=== PATIENT | male | born 1950 | race Caucasian/White ===

== ENCOUNTER 2017-12-19 12:59 | Inpatient (IN) | payer MEDICARE, MEDICAID, SELFPAY ==
[2017-12-19 13:36] VITALS: BMI 24.7
--- NOTE | 2017-12-19 13:48 | EKG12_ITS ---
Test Reason : OPWITH Blood Pressure : / mmHG Vent. Rate : 060 BPM Atrial Rate : 060 BPM P-R Int : 148 ms QRS Dur : 076 ms QT Int : 442 ms P-R-T Axes : 069 016 073 degrees QTc Int : 442 ms Normal sinus rhythm Septal infarct , age undetermined Abnormal ECG Confirmed by MAT TORRES ([id number]), online editor FITZ JACKSON ([id number]) on 12/31/2017 3:01:12 PM Referred By: Kelsy Lowe Confirmed By:MAT TORRES
--- NOTE | 2017-12-19 13:50 | HP.PCM_ITS ---
Problem List (1) CVA (cerebral vascular accident) Status: Resolved (2) HTN (hypertension) Status: Chronic (3) Dyslipidemia Status: Chronic History of Present Illness Date of Admission: 12/19/17 Chief Complaint: Symptom complex of opiate withdrawal The patient is a 67 year old M with past medical history of essential hypertension, dyslipidemia and old CVA who presents with symptoms of heroin withdrawal after he made an attempt to quit use of Heroin. . He wants to stop use of illicit drugs, he last used the drug about 5 AM today. He currently reports irritability, anxiety ,diaphoresis back pain restless legs, nausea and abdominal discomfort. Patient denies any chest pain, shortness of breath , palpitations or rapid heartbeat. Past Medical History Past Medical History (Chronic Problems): Chronic Problems HTN (hypertension) (Chronic) Dyslipidemia (Chronic) Allergies No Known Allergies Allergy (Verified 12/19/17 13:48) Home Medications: Ambulatory Orders Medication Instructions Recorded Albuterol Inhaler [Ventolin Hfa 1 - 2 puff INHALATION Q4H PRN PRN 12/19/17 (SP)] Atorvastatin Calcium 40 mg PO DAILY 12/19/17 Clopidogrel Bisulfate [Clopidogrel] 75 mg PO DAILY 12/19/17 Losartan/Hydrochlorothiazide 1 each PO DAILY 12/19/17 [Losartan-Hctz 50-12.5 mg Tab] Smoking Status: Current every day smoker Review of Systems Constitutional: Reports: Anorexia VTE Information - Inpt Only VTE Present on Admission: No VTE Mechan Device Prophylaxis: SCD's VTE Pharm Prophylaxis ordered?: No - Physical Exam General: Alert, Oriented x3 HEENT: Atraumatic Oral: Moist Mucosa Neck: Supple, No JVD Lungs: Clear to auscultation Cardiovascular: Regular rate, Normal S1, Normal S2 Weight: 78.1 kg Body Mass Index (BMI) 24.7 Assessment/Plan All Active Problems CVA (cerebral vascular accident) (Resolved) 1. Acute opiate withdrawal; he will be started on the [facility] opiate withdrawal protocol for medical stabilization. We will continue to monitor the patient closely. 2. Drug use disorder; the patient is recommended to follow up for outpatient drug rehabilitation. 3. Old CVA; we will continue his antiplatelet therapy for secondary stroke prevention. 4. Nicotine dependency; he has been offered nicotine replacement therapy. 5. DVT prophylaxis with early ambulation and SCDs. Code Visit Inpatient E&M: 92470 Init Hosp L3
[2017-12-19 13:53] VITALS: BP 125/83; PULSE 77; RESP 18; TEMP 36.8; O2SAT 92
[2017-12-19 14:04] VITALS: BP 125/83; PULSE 77; RESP 18; TEMP 36.8
[2017-12-19 14:31] LABS: International Normalized Ratio 1.1; Prothrombin Time (Protime)PT. 13.8 SECONDS (11.7-14.9)
[2017-12-19 14:36] LABS: Amylase 39 U/L (25-115); Lipase 100 U/L (73-393)
[2017-12-19] MEDS: cloNIDine HCl 0.1 MG Tablet PO ×3 (14:49→19:53)
[2017-12-19] MEDS: Buprenorphine HCl 2 MG TAB.SUBL SL ×2 (14:49→21:44)
[2017-12-19] MEDS: Dicyclomine 10 MG Capsule 20 MG PO (14:50)
[2017-12-19] MEDS: hydrOXYzine PAM 25 MG Capsule 50 MG PO (14:50)
[2017-12-19 14:57] LABS: Alcohol, Blood (Medical)-Serum < 3.0 mg/dL
[2017-12-19] MEDS: Ondansetron ODT 4 MG Tablet PO (15:48)
[2017-12-19 16:04] LABS: Amphetamine Urine VISTA NEGATIVE (<1000 ng/mL); Barbiturate Urine VISTA NEGATIVE (< 200 ng/mL); Benzodiazepine Urine VISTA NEGATIVE (< 200 ng/mL); Cocaine Urine VISTA NEGATIVE (< 300 ng/mL); Ecstacy Urine VISTA NEGATIVE (< 500 ng/mL); Methadone Urine VISTA NEGATIVE (< 300 ng/mL); PCP Urine VISTA NEGATIVE (< 25 ng/mL); THC Urine VISTA NEGATIVE (< 50 ng/mL); Vista UDS pH Range 7
[2017-12-19] MEDS: Methocarbamol 750 MG Tablet PO (17:45)
[2017-12-19] MEDS: Pramipexole Di-HCl 0.25 MG Tablet PO (17:45)
[2017-12-19 18:00] VITALS: BP 128/77; PULSE 70; RESP 18; TEMP 36.8; O2SAT 96
[2017-12-19] MEDS: traZODone 50 MG Tablet PO (19:52)
[2017-12-19] MEDS: QUEtiapine 25 MG Tablet PO (19:53)
[2017-12-19] MEDS: Ibuprofen 600 MG Tablet PO (21:47)
[2017-12-19 21:58] VITALS: BP 117/70; PULSE 72; RESP 18; TEMP 36.7; O2SAT 94
[2017-12-20] VITALS (9 sets, daily range): BP systolic 113–138; BP diastolic 74–98; PULSE 62–68; RESP 16–20; TEMP 36.5–37; O2SAT 93–97
[2017-12-20] MEDS: cloNIDine HCl 0.1 MG Tablet PO ×6 (00:11→17:27)
[2017-12-20] MEDS: Methocarbamol 750 MG Tablet PO ×3 (00:11→22:21)
[2017-12-20] MEDS: hydrOXYzine PAM 25 MG Capsule 50 MG PO ×3 (00:11→17:28)
[2017-12-20] MEDS: Albuterol 2.5 MG/3 ML VIAL.NEB. INHALATION ×2 (01:23→22:26)
[2017-12-20] MEDS: Ibuprofen 600 MG Tablet PO ×2 (05:44→17:27)
[2017-12-20] MEDS: Buprenorphine HCl 2 MG TAB.SUBL SL ×3 (05:44→22:21)
[2017-12-20] MEDS: Pramipexole Di-HCl 0.25 MG Tablet PO ×2 (05:45→17:19)
[2017-12-20] MEDS: Losartan Potassium 50 MG Tablet PO (07:42)
[2017-12-20] MEDS: HYDROCHLOROTHIAZIDE 12.5 MG CAPSULE PO (07:42)
[2017-12-20] MEDS: Clopidogrel Bisulfate 75 MG Tablet PO (07:42)
--- NOTE | 2017-12-20 09:01 | PN_ITS ---
Subjective: Patient was seen and examined. Complains of poor sleep last night. Complains of cramps in his lower extremities. Denies any fever or chills or nausea or vomiting. Vitals/I&O's: Vital Signs Temp Pulse Resp BP Pulse Ox 98.1 F 65 16 126/92 H 94 12/20/17 07:47 12/20/17 07:47 12/20/17 07:47 12/20/17 07:47 12/20/17 07:47 Oxygen Delivery Method Room Air Weight: 78.1 kg Body Mass Index (BMI) 24.7 Intake and Output for Last 24 Hours 12/18/17 12/19/17 12/20/17 23:59 23:59 23:59 Intake Total 1500 / 1500 800 / 800 Balance 1500 / 1500 800 / 800 General: Alert, Oriented x3, Cooperative, No apparent distress HEENT: Atraumatic, PERRLA, EOMI, Normocephalic Oral: Moist Mucosa Neck: Supple Lungs: Clear to auscultation, Normal air movement Cardiovascular: Regular rate, Regular Rhythm, Normal S1, Normal S2, No murmurs Abdomen: Bowel Sounds Present, Soft, Non Tender, Non-Distended, No Hepato- splenomegaly Extremities: No edema Skin: - - Bruises on dorsum of hands and upper extremities. Musculoskeletal: No Tenderness to Palpation of Joints or Extremities Neurological: Cranial nerves II-XII grossly intact, Neuro grossly intact Psych/Mental Status: Normal Affect, Appropriate Laboratory Results 12/19/17 14:10: PT 13.8, INR 1.1 12/19/17 14:10: Amylase 39, Lipase 100 12/19/17 14:10: Ethyl Alcohol < 3.0 12/19/17 14:50: Urine Opiates Screen POSITIVE H, Urine Methadone Screen NEGATIVE , Ur Barbiturates Screen NEGATIVE, Ur Phencyclidine Scrn NEGATIVE, Ur Amphetamines Screen NEGATIVE, U Methamphetamin-MDMA NEGATIVE, U Benzodiazepines Scrn NEGATIVE, Urine Cocaine Screen NEGATIVE, U Cannabinoids Screen NEGATIVE, Ur Drug Screen Comment Current Medications Acetaminophen (Tylenol) 500 mg PO Q4H PRN PRN PRN Reason: Temp > 100.4 F Albuterol Sulfate (Ventolin Aerosols) 2.5 mg INHALATION Q4H PRN PRN Reason: SOB &/OR WHEEZING Last Admin: 12/20/17 01:23 Dose: 2.5 mg Atorvastatin Calcium (Lipitor) 40 mg PO QHS [facility] Bisacodyl (Dulcolax) 10 mg RECTAL DAILY PRN PRN Reason: Constipation Buprenorphine HCl (Buprenorphine Hcl) 4 mg SL Q8H LEONARD PRN Reason: Taper Stop: 12/22/17 18:29 Last Admin: 12/20/17 05:44 Dose: 4 mg Clonidine (Catapres) 0.1 mg PO Q2H PRN PRN PRN Reason: Hot/Cold Sweats or Anxiety Last Admin: 12/20/17 07:39 Dose: 0.1 mg Clopidogrel Bisulfate (Plavix) 75 mg PO DAILY [facility] Last Admin: 12/20/17 07:42 Dose: 75 mg Dicyclomine HCl (Bentyl) 20 mg PO Q6H PRN PRN PRN Reason: Abdomnial Discomfort Last Admin: 12/19/17 14:50 Dose: 20 mg Hydrochlorothiazide (Hydrochlorothiazide) 12.5 mg PO DAILY [facility] Last Admin: 12/20/17 07:42 Dose: 12.5 mg Hydroxyzine HCl (Vistaril Vial) 50 mg IM Q6H PRN PRN PRN Reason: Breakthrough Anxiety Hydroxyzine Pamoate (Vistaril Pamoate Capsule) 50 mg PO Q6H PRN PRN PRN Reason: Mild Anxiety (score 1/3) Last Admin: 12/20/17 06:42 Dose: 50 mg Ibuprofen (Motrin) 600 mg PO Q8H PRN PRN PRN Reason: Mild-Moderate Pain (1-5/10) Last Admin: 12/20/17 05:44 Dose: 600 mg Loperamide HCl (Imodium) 2 - 4 mg PO UD PRN PRN Reason: LOOSE STOOLS Losartan Potassium (Cozaar) 50 mg PO DAILY [facility] Last Admin: 12/20/17 07:42 Dose: 50 mg Methocarbamol (Methocarbamol) 750 mg PO Q6H PRN PRN PRN Reason: Muscle Aches Last Admin: 12/20/17 07:39 Dose: 750 mg Nicotine (Nicoderm Cq (Pbkc)) 21 mg TRANSDERM. DAILY [facility] Last Admin: 12/20/17 07:40 Dose: 21 mg Ondansetron HCl (Zofran Odt) 4 mg PO Q6H PRN PRN PRN Reason: NAUSEA Last Admin: 12/19/17 15:48 Dose: 4 mg Pramipexole Dihydrochloride (Mirapex) 0.25 mg PO Q12H PRN PRN PRN Reason: Restless Legs Last Admin: 12/20/17 05:45 Dose: 0.25 mg Quetiapine Fumarate (Seroquel) 25 mg PO Q6H PRN PRN PRN Reason: Moderate Anxiety (score 2/3) Last Admin: 12/19/17 19:53 Dose: 25 mg Senna (Senokot) 1 tablet PO QHS PRN PRN Reason: Constipation Sodium Chloride () 5 - 30 ml IV UD PRN PRN Reason: SALINE FLUSH Trazodone HCl (Desyrel) 50 mg PO QHS [facility] Last Admin: 12/19/17 19:52 Dose: 50 mg Medical Necessity - Tobacco Use Smoking Status: Current every day smoker Assessment/Plan All Active Problems CVA (cerebral vascular accident) (Resolved) 1. Acute opiate withdrawal, stable, being managed on the buprenorphine protocol , continue per the [facility] program 2. Polysubstance use -patient advised to quit, will follow up for outpatient drug rehabilitation. 3. H/o CVA, with no residual deficits, on Plavix, statins, continue for secondary stroke prevention 4. Hypertension controlled, continue on hydrochlorothiazide, losartan, continue to monitor vitals 5. Nicotine use disorder, on nicotine patch 6. DVT prophylaxis with early ambulation and SCDs. Code Visit Inpatient E&M: 49107 Subs Hosp L2
[2017-12-20] MEDS: QUEtiapine 25 MG Tablet PO ×2 (09:29→17:27)
--- NOTE | 2017-12-20 10:18 | PCA ---
pt would like to not be disturbed
--- NOTE | 2017-12-20 11:03 | PCA ---
per nichol/rn pt asked to not be disturbed
[2017-12-20] MEDS: Senna Tablet 1 TABLET PO (12:34)
[2017-12-20] MEDS: Bisacodyl 10 MG Suppository RECTAL (12:36)
--- NOTE | 2017-12-20 13:17 | PCA ---
per nichol/rn pt doesn't want to be disturbed except for meds
--- NOTE | 2017-12-20 15:12 | CHAPLAIN ---
Type of Pastoral Visit ___ Initial Visit ___ Follow-up Visit ___ On-call Visit ___ General Patient Visit ___ Spiritual Assessment ___ Family Conference ___ Bereavement ___ Rapid Response ___ Code Blue _x__ Other (describe below) Pastoral Care Referral From ___ Patient ___ Family ___ Nurse ___ Physician ___ Oil Tanker Captain ___ Telephone Engineer ___ Other (describe below) Sacrament/Intervention ___ Active listening ___ Anointing ___ Samaritan ___ Bereavement ___ Communion ___ Marva exploration ___ ___ Life review ___ Prayer ___ Reconciliation ___ Sacrament of Sick ___ Supportive presence ___ Wedding ___ Other (describe below) Pastoral Comments RN asked this patient if he would like this pipe coverer helper to come for support; pt declined offer and said It won't do any good
--- NOTE | 2017-12-20 15:18 | PCA ---
per nichol/rn pt would not like to be disturbed except for meds
--- NOTE | 2017-12-20 17:30 | PCA ---
not to disturb pt per dr's orders unless pt calls
[2017-12-20] MEDS: Atorvastatin Calcium 40 MG Tablet PO (22:21)
[2017-12-20] MEDS: Ondansetron ODT 4 MG Tablet PO (22:21)
[2017-12-20] MEDS: traZODone 50 MG Tablet PO (22:21)
[2017-12-20] MEDS: MELATONIN 3 MG TABLET PO (22:29)
[2017-12-21] VITALS (11 sets, daily range): BP systolic 93–149; BP diastolic 64–96; PULSE 54–78; RESP 16–20; TEMP 36.6–37.3; O2SAT 88–95
[2017-12-21 06:08] LABS: Absolute Lymphocyte Count 2.03 X10^3/ul (0.83-4.51); Absolute Neutrophil Count 4.4 X10^3/uL (2.0-7.7); Basophil# 0.03 X10^3/uL; Basophil% 0.4 % (0-1); Eosinophils% 2.7 % (0-5); Hematocrit 46.4 % (40-54); Hemoglobin 15.8 g/dl (13.0-16.5); Lymphocyte # 2.03 X10^3/ul (4.0); Lymphocyte % 27.6 % (19-41); Mean Corp Hgb Conc 34.1 g/gl (32-36); Mean Corpuscular Hgb 31.2 pg (27.0-32.0); Mean Corpuscular Volume 91.7 fL (80-94); Monocyte# 0.66 X10^3/uL; Neutrophil # 4.43 X10^3/uL (2.7-7.7); Neutrophil % 60.2 % (47-70); Platelet Count 135 K/mm3 (150-450); RBC Distribution Width CV 13.8 % (11.6-14.6); RBC Distribution Width SD 46.2 fl (35.1-43.9); Red Blood Count 5.06 M/mm3 (4.6-6.2); White Blood Count 7.4 K/mm3 (4.4-11.0)
[2017-12-21 06:10] LABS: Differential Indicated SCAN CRITERIA MET; POSITIVE COUNT NO; POSITIVE DIFFERENTIAL NO; POSITIVE MORPHOLOGY YES
[2017-12-21 06:22] LABS: Differential Comment SCANNED
[2017-12-21 06:30] LABS: Anion Gap 6 (5-15); BUN 11 mg/dL (7-18); BUN/Creat Ratio 13.8 RATIO (10-20); Calcium,Total 8.8 mg/dL (8.5-10.1); Chloride 109 mmol/L (98-107); EST Glomerular Filtration Rate 103 mL/min (>60); Est Glom Filt Rate - Afr Amer 124 mL/min (>60); Estimated Creatinine Clearance 92.52 ml/min; Glucose 104 mg/dL (74-106); Potassium 3.6 mmol/L (3.5-5.1); Sodium Level 143 mmol/L (136-145)
[2017-12-21] MEDS: Buprenorphine HCl 2 MG TAB.SUBL SL ×2 (06:45→18:13)
[2017-12-21] MEDS: Ibuprofen 600 MG Tablet PO ×2 (06:46→18:20)
[2017-12-21] MEDS: Pramipexole Di-HCl 0.25 MG Tablet PO (06:46)
[2017-12-21] MEDS: Sodium Chloride 0.65% 1 SPRAY SPRAY.BTL NASAL (06:47)
[2017-12-21] MEDS: hydrOXYzine PAM 25 MG Capsule 50 MG PO ×3 (06:47→23:21)
[2017-12-21] MEDS: Albuterol 2.5 MG/3 ML VIAL.NEB. INHALATION ×2 (10:06→23:38)
[2017-12-21] MEDS: cloNIDine HCl 0.1 MG Tablet PO ×3 (10:07→23:21)
[2017-12-21] MEDS: Senna Tablet 1 TABLET PO ×2 (10:07→23:21)
[2017-12-21] MEDS: HYDROCHLOROTHIAZIDE 12.5 MG CAPSULE PO (10:07)
[2017-12-21] MEDS: Methocarbamol 750 MG Tablet PO ×2 (10:07→23:36)
[2017-12-21] MEDS: Losartan Potassium 50 MG Tablet PO (10:07)
[2017-12-21] MEDS: Clopidogrel Bisulfate 75 MG Tablet PO (10:07)
--- NOTE | 2017-12-21 11:49 | PCM.PN.HOSP ---
Subjective: Patient was seen and examined. Objective: Physical exam: General: Alert, Oriented x3, Cooperative, No apparent distress HEENT: Atraumatic, PERRLA, EOMI, Normocephalic Oral: Moist Mucosa Neck: Supple Lungs: Clear to auscultation, Normal air movement Cardiovascular: Regular rate, Regular Rhythm, Normal S1, Normal S2, No murmurs Abdomen: Bowel Sounds Present, Soft, Non Tender, Non-Distended, No Hepato-splenomegaly Extremities: No edema Skin: - - Bruises on dorsum of hands and upper extremities. Musculoskeletal: No Tenderness to Palpation of Joints or Extremities Neurological: Cranial nerves II-XII grossly intact, Neuro grossly intact Psych/Mental Status: Normal Affect, Appropriate Vitals/I&O's: Vital Signs Temp Pulse Resp BP Pulse Ox 98.4 F 77 18 106/83 H 91 12/21/17 09:30 12/21/17 10:06 12/21/17 10:06 12/21/17 09:30 12/21/17 10:06 Oxygen Flow Rate (L/min) 2 Oxygen Delivery Method Room Air Weight: 78.1 kg Body Mass Index (BMI) 24.7 Intake and Output for Last 24 Hours 12/19/17 12/20/17 12/21/17 23:59 23:59 23:59 Intake Total 1500 / 1500 1949 / 1949 440 / 440 Balance 1500 / 1500 1949 / 1949 440 / 440 Laboratory Results 12/21/17 05:20: WBC 7.4, RBC 5.06, Hgb 15.8, Hct 46.4, MCV 91.7, MCH 31.2, MCHC 34.1, RDW 13.8, RDW Differential 46.2 H, Plt Count 135 L, MPV 11.0, Immature Gran % (Auto) 0.100, Neut % (Auto) 60.2, Lymph % (Auto) 27.6, Reeves % (Auto) 9.0, Eos % (Auto) 2.7, Baso % (Auto) 0.4, Absolute Neuts (auto) 4.4, Absolute Lymphs (auto) 2.03, Total Counted Not Reportable, Differential Comment SCANNED 12/21/17 06:05: Sodium 143, Potassium 3.6, Chloride 109 H, Carbon Dioxide 28.0, Anion Gap 6, BUN 11, Creatinine 0.80, Estim Creat Clear Calc 92.52, Est GFR (MDRD) Af Amer 124, Est GFR (MDRD) Non-Af 103, BUN/Creatinine Ratio 13.8, Glucose 104, Calcium 8.8 Current Medications Acetaminophen (Tylenol) 500 mg PO Q4H PRN PRN PRN Reason: Temp > 100.4 F Albuterol Sulfate (Ventolin Aerosols) 2.5 mg INHALATION Q4H PRN PRN Reason: SOB &/OR WHEEZING Last Admin: 12/21/17 10:06 Dose: 2.5 mg Atorvastatin Calcium (Lipitor) 40 mg PO QHS [facility] Last Admin: 12/20/17 22:21 Dose: 40 mg Bisacodyl (Dulcolax) 10 mg RECTAL DAILY PRN PRN Reason: Constipation Last Admin: 12/20/17 12:36 Dose: 10 mg Buprenorphine HCl (Buprenorphine Hcl) 2 mg SL Q12H LEONARD PRN Reason: Taper Stop: 12/22/17 18:29 Last Admin: 12/21/17 06:45 Dose: 2 mg Clonidine (Catapres) 0.1 mg PO Q2H PRN PRN PRN Reason: Hot/Cold Sweats or Anxiety Last Admin: 12/21/17 10:07 Dose: 0.1 mg Clopidogrel Bisulfate (Plavix) 75 mg PO DAILY [facility] Last Admin: 12/21/17 10:07 Dose: 75 mg Dicyclomine HCl (Bentyl) 20 mg PO Q6H PRN PRN PRN Reason: Abdomnial Discomfort Last Admin: 12/19/17 14:50 Dose: 20 mg Hydrochlorothiazide (Hydrochlorothiazide) 12.5 mg PO DAILY [facility] Last Admin: 12/21/17 10:07 Dose: 12.5 mg Hydroxyzine HCl (Vistaril Vial) 50 mg IM Q6H PRN PRN PRN Reason: Breakthrough Anxiety Hydroxyzine Pamoate (Vistaril Pamoate Capsule) 50 mg PO Q6H PRN PRN PRN Reason: Mild Anxiety (score 1/3) Last Admin: 12/21/17 06:47 Dose: 50 mg Ibuprofen (Motrin) 600 mg PO Q8H PRN PRN PRN Reason: Mild-Moderate Pain (1-5/10) Last Admin: 12/21/17 06:46 Dose: 600 mg Loperamide HCl (Imodium) 2 - 4 mg PO UD PRN PRN Reason: LOOSE STOOLS Losartan Potassium (Cozaar) 50 mg PO DAILY [facility] Last Admin: 12/21/17 10:07 Dose: 50 mg Melatonin (Melatonin) 3 mg PO QHS [facility] Last Admin: 12/20/17 22:29 Dose: 3 mg Methocarbamol (Methocarbamol) 750 mg PO Q6H PRN PRN PRN Reason: Muscle Aches Last Admin: 12/21/17 10:07 Dose: 750 mg Nicotine (Nicoderm Cq (Pbkc)) 21 mg TRANSDERM. DAILY [facility] Last Admin: 12/21/17 10:07 Dose: 21 mg Ondansetron HCl (Zofran Odt) 4 mg PO Q6H PRN PRN PRN Reason: NAUSEA Last Admin: 12/20/17 22:21 Dose: 4 mg Pramipexole Dihydrochloride (Mirapex) 0.25 mg PO Q12H PRN PRN PRN Reason: Restless Legs Last Admin: 12/21/17 06:46 Dose: 0.25 mg Quetiapine Fumarate (Seroquel) 25 mg PO Q6H PRN PRN PRN Reason: Moderate Anxiety (score 2/3) Last Admin: 12/20/17 17:27 Dose: 25 mg Senna (Senokot) 1 tablet PO QHS PRN PRN Reason: Constipation Last Admin: 12/21/17 10:07 Dose: 1 tablet Sodium Chloride () 5 - 30 ml IV UD PRN PRN Reason: SALINE FLUSH Sodium Chloride ([place] Nasal [place]) 1 spray NASAL TID PRN PRN PRN Reason: NASAL DRYNESS Last Admin: 12/21/17 06:47 Dose: 1 spray Trazodone HCl (Desyrel) 50 mg PO QHS [facility] Last Admin: 12/20/17 22:21 Dose: 50 mg Medical Necessity - Tobacco Use Smoking Status: Current every day smoker Assessment/Plan All Active Problems CVA (cerebral vascular accident) (Resolved) 1. Acute opiate withdrawal, stable, being managed on the buprenorphine protocol, continue per the [facility] program 2. Polysubstance use -patient advised to quit, will follow up for outpatient drug rehabilitation. 3. H/o CVA, with no residual deficits, on Plavix, statins, continue for secondary stroke prevention 4. Hypertension controlled, continue on hydrochlorothiazide, losartan, continue to monitor vitals 5. Nicotine use disorder, on nicotine patch 6. DVT prophylaxis with early ambulation and SCDs. Code Visit Inpatient E&M: 34111 Subs Hosp L2
--- NOTE | 2017-12-21 17:46 | NURSING ---
provided pt with list of pulmonologists in [place] for patient to follow up as an outpatient.
[2017-12-21] MEDS: QUEtiapine 25 MG Tablet PO (18:20)
[2017-12-21] MEDS: Atorvastatin Calcium 40 MG Tablet PO (23:21)
[2017-12-21] MEDS: MELATONIN 3 MG TABLET PO (23:21)
[2017-12-21] MEDS: traZODone 50 MG Tablet PO (23:21)
[2017-12-21] MEDS: Ondansetron ODT 4 MG Tablet PO (23:21)
[2017-12-22] MEDS: Buprenorphine HCl 2 MG TAB.SUBL SL (06:54)
[2017-12-22] MEDS: Pramipexole Di-HCl 0.25 MG Tablet PO (06:59)
[2017-12-22 07:00] VITALS: BP 137/86; PULSE 56; RESP 18; TEMP 36.4; O2SAT 87
[2017-12-22 07:34] VITALS: PULSE 70
--- NOTE | 2017-12-22 08:44 | PCM.PN.HOSP ---
Subjective: Patient was seen and examined. Feels achy all over. No acute events overnight. He will be discharged tomorrow to follow-up with an inpatient drug rehab facility in [place]. Objective: Physical exam: General: Alert, Oriented x3, Cooperative, No apparent distress HEENT: Atraumatic, PERRLA, EOMI, Normocephalic Oral: Moist Mucosa Neck: Supple Lungs: Clear to auscultation, Normal air movement Cardiovascular: Regular rate, Regular Rhythm, Normal S1, Normal S2, No murmurs Abdomen: Bowel Sounds Present, Soft, Non Tender, Non-Distended, No Hepato-splenomegaly Extremities: No edema Skin: - - Bruises on dorsum of hands and upper extremities. Musculoskeletal: No Tenderness to Palpation of Joints or Extremities Neurological: Cranial nerves II-XII grossly intact, Neuro grossly intact Psych/Mental Status: Normal Affect, Appropriate Vitals/I&O's: Vital Signs Temp Pulse Resp BP Pulse Ox 97.6 F L 70 18 137/86 H 87 12/22/17 07:00 12/22/17 07:34 12/22/17 07:00 12/22/17 07:00 12/22/17 07:00 Oxygen Flow Rate (L/min) 2 Oxygen Delivery Method Room Air Weight: 78.1 kg Body Mass Index (BMI) 24.7 Intake and Output for Last 24 Hours 12/20/17 12/21/17 12/22/17 23:59 23:59 23:59 Intake Total 1949 1540 / 1540 860 / 860 Balance 1949 1540 / 1540 860 / 860 Current Medications Acetaminophen (Tylenol) 500 mg PO Q4H PRN PRN PRN Reason: Temp > 100.4 F Albuterol Sulfate (Ventolin Aerosols) 2.5 mg INHALATION Q4H PRN PRN Reason: SOB &/OR WHEEZING Last Admin: 12/21/17 23:38 Dose: 2.5 mg Atorvastatin Calcium (Lipitor) 40 mg PO QHS [facility] Last Admin: 12/21/17 23:21 Dose: 40 mg Bisacodyl (Dulcolax) 10 mg RECTAL DAILY PRN PRN Reason: Constipation Last Admin: 12/20/17 12:36 Dose: 10 mg Buprenorphine HCl (Buprenorphine Hcl) 2 mg SL Q12H [facility]ONARD PRN Reason: Taper Stop: 12/22/17 18:29 Last Admin: 12/22/17 06:54 Dose: 2 mg Clonidine (Catapres) 0.1 mg PO Q2H PRN PRN PRN Reason: Hot/Cold Sweats or Anxiety Last Admin: 12/21/17 23:21 Dose: 0.1 mg Clopidogrel Bisulfate (Plavix) 75 mg PO DAILY [facility] Last Admin: 12/21/17 10:07 Dose: 75 mg Dicyclomine HCl (Bentyl) 20 mg PO Q6H PRN PRN PRN Reason: Abdomnial Discomfort Last Admin: 12/19/17 14:50 Dose: 20 mg Hydrochlorothiazide (Hydrochlorothiazide) 12.5 mg PO DAILY [facility] Last Admin: 12/21/17 10:07 Dose: 12.5 mg Hydroxyzine HCl (Vistaril Vial) 50 mg IM Q6H PRN PRN PRN Reason: Breakthrough Anxiety Hydroxyzine Pamoate (Vistaril Pamoate Capsule) 50 mg PO Q6H PRN PRN PRN Reason: Mild Anxiety (score 1/3) Last Admin: 12/21/17 23:21 Dose: 50 mg Ibuprofen (Motrin) 600 mg PO Q8H PRN PRN PRN Reason: Mild-Moderate Pain (1-5/10) Last Admin: 12/21/17 18:20 Dose: 600 mg Loperamide HCl (Imodium) 2 - 4 mg PO UD PRN PRN Reason: LOOSE STOOLS Losartan Potassium (Cozaar) 50 mg PO DAILY [facility] Last Admin: 12/21/17 10:07 Dose: 50 mg Melatonin (Melatonin) 3 mg PO QHS [facility] Last Admin: 12/21/17 23:21 Dose: 3 mg Methocarbamol (Methocarbamol) 750 mg PO Q6H PRN PRN PRN Reason: Muscle Aches Last Admin: 12/21/17 23:36 Dose: 750 mg Nicotine (Nicoderm Cq (Pbkc)) 21 mg TRANSDERM. DAILY [facility] Last Admin: 12/21/17 10:07 Dose: 21 mg Nicotine Polacrilex ([place] Nicotine (Pbkc)) 4 mg PO Q2H PRN PRN PRN Reason: Nicotine Craving Last Admin: 12/21/17 17:01 Dose: 4 mg Ondansetron HCl (Zofran Odt) 4 mg PO Q6H PRN PRN PRN Reason: NAUSEA Last Admin: 12/21/17 23:21 Dose: 4 mg Pramipexole Dihydrochloride (Mirapex) 0.25 mg PO Q12H PRN PRN PRN Reason: Restless Legs Last Admin: 12/22/17 06:59 Dose: 0.25 mg Quetiapine Fumarate (Seroquel) 25 mg PO Q6H PRN PRN PRN Reason: Moderate Anxiety (score 2/3) Last Admin: 12/21/17 18:20 Dose: 25 mg Senna (Senokot) 1 tablet PO QHS PRN PRN Reason: Constipation Last Admin: 12/21/17 23:21 Dose: 1 tablet Sodium Chloride () 5 - 30 ml IV UD PRN PRN Reason: SALINE FLUSH Sodium Chloride ([place] Nasal [place]) 1 spray NASAL TID PRN PRN PRN Reason: NASAL DRYNESS Last Admin: 12/21/17 06:47 Dose: 1 spray Trazodone HCl (Desyrel) 50 mg PO QHS [facility] Last Admin: 12/21/17 23:21 Dose: 50 mg Medical Necessity - Tobacco Use Smoking Status: Current every day smoker Assessment/Plan All Active Problems CVA (cerebral vascular accident) (Resolved) 1. Acute opiate withdrawal, stable, being managed on the buprenorphine protocol, continue per the [facility] program 2. Polysubstance use -patient advised to quit, will follow up for outpatient drug rehabilitation on discharge tomorrow 3. H/o CVA, with no residual deficits, on Plavix, statins, continue for secondary stroke prevention 4. Hypertension controlled, continue on hydrochlorothiazide, losartan, continue to monitor vitals 5. Nicotine use disorder, on nicotine patch 6. DVT prophylaxis with early ambulation and SCDs. Code Visit Inpatient E&M: 58093 Subs Hosp L2
--- NOTE | 2017-12-22 09:04 | PCM.DC ---
- Discharge Diagnoses Current Active Problems: Current Active and Chronic Problems HTN (hypertension) (Chronic) Dyslipidemia (Chronic) Reason(s) for Visit for Discharge Instructions: Acute opiate withdrawal You will use the following diet at home:: Cardiac Your food should be the consistency of: Regular Your liquids should be the consistency of: Regular/Thin Discharge Activity: Return to Normal Activity Additional Instructions: Advised to using illicit drugs. Also strongly advised to quit smoking. Continue to take all your other medications, follow-up with your primary care doctor within 2 weeks of discharge. Allergies/Adverse Reactions: Allergies No Known Allergies Allergy (Verified 12/19/17 13:48) Medications to take at Discharge Albuterol Inhaler [Ventolin Hfa] 1 - 2 puff INHALATION Q4H PRN PRN 12/19/17 Atorvastatin Calcium 40 mg PO DAILY 12/19/17 Clopidogrel Bisulfate [Clopidogrel] 75 mg PO DAILY 12/19/17 Losartan/Hydrochlorothiazide [Losartan-Hctz 50-12.5 mg Tab] 1 each PO DAILY 12/19/17 Primary Care Physician: Ludwin Pulido,Out of [Primary Care Provider] - Please follow up with your Primary Care Physician in: within 2 weeks Proposed Discharge Date: 12/22/17
[2017-12-22 09:31] VITALS: BP 126/78; PULSE 62; RESP 18; TEMP 36.5
[2017-12-22 09:36] VITALS: BP 126/78; PULSE 61; RESP 18; TEMP 36.5; O2SAT 97
[2017-12-22] MEDS: Ibuprofen 600 MG Tablet PO (09:39)
[2017-12-22] MEDS: Losartan Potassium 50 MG Tablet PO (09:46)
[2017-12-22] MEDS: HYDROCHLOROTHIAZIDE 12.5 MG CAPSULE PO (09:46)
[2017-12-22] MEDS: Clopidogrel Bisulfate 75 MG Tablet PO (09:46)
[2017-12-22] MEDS: cloNIDine HCl 0.1 MG Tablet PO (09:49)
[2017-12-22 09:55] VITALS: O2SAT 97
--- NOTE | 2017-12-22 11:49 | PCA ---
pt does not want to be disturbed
--- NOTE | 2017-12-22 11:50 | PCA ---
pt does not want to be disturbed
--- NOTE | 2017-12-22 12:00 | NURSING ---
Pt had asked earlier to talk to Dr. Guy about getting meds today so he could go home and take care of things before the went to rehab. She said the pt he told her he would stay until tomorrow. After talking to the pt that this nurse was talking to Dr. Guy and asked him if he wanted to go home he said I will stay till tomorrow at 1132, at 1145 pt decided to go AMA, Dr. Guy was notified by Christel BESS the charge nurse. Pt signed AMA paper and ambulated off the unit.
--- NOTE | 2017-12-22 13:30 | DS.PCM_ITS ---
Discharge Date and Diagnosis Date of Admission: 12/19/17 Date of Discharge: 12/22/17 - Primary Discharge Diagnosis Acute Opiate withdrawal - Secondary Discharge Diagnosis Chronic Problems HTN (hypertension) (Chronic) Dyslipidemia (Chronic) Hospital Course and Treatment None Operations: None Procedures: None Summary of Care Provided: The patient is a 67 year old M with medical history of hypertension, hyperlipidemia, CVA, polysubstance use disorder, regular use of heroin IV, who comes acute opiate withdrawal symptoms for medical stabilization under the [facility] protocol. 1. Acute opiate withdrawal, improved on the buprenorphine protocol with the [facility] program 2. Polysubstance use -patient advised to quit, will follow up for outpatient drug rehabilitation on discharge 3. H/o CVA, with no residual deficits, on Plavix, statins 4. Hypertension controlled, continue on hydrochlorothiazide, losartan 5. Nicotine use disorder, on nicotine patch Discharge Diet: Low fat/ Low Cholesterol, 2000 mg Sodium Diet Discharge Activity: Return to Normal Activity Home Medications: Medications to take at Discharge Albuterol Inhaler [Ventolin Hfa] 1 - 2 puff INHALATION Q4H PRN PRN 12/19/17 Atorvastatin Calcium 40 mg PO DAILY 12/19/17 Clopidogrel Bisulfate [Clopidogrel] 75 mg PO DAILY 12/19/17 Losartan/Hydrochlorothiazide [Losartan-Hctz 50-12.5 mg Tab] 1 each PO DAILY Primary Care Physician: Ludwin Pulido,Out of [Primary Care Provider] - Please follow up with your Primary Care Physician in: within 2 weeks Disposition: Home Minutes spent on discharge:: 40 Patient Condition:: Stable Medical Necessity - Tobacco Use Smoking Status: Current every day smoker Meaningful Use Info Meaningful Use Diagnoses (Choose all that apply): None applicable Code Visit Inpatient E&M: 70335 Disch Hosp
== END 2017-12-22 12:00 | disposition left against medical advice (07) | DRG 894 ==
PROVIDERS: Internal Medicine; Admitting Provider Internal Medicine; Visit Provider Internal Medicine
DX: F11.23 Opioid dependence with withdrawal (principal); I10 Essential (primary) hypertension; Z86.73 Personal history of transient ischemic attack (TIA), and cerebral infarction without residual deficits; E78.5 Hyperlipidemia, unspecified; F17.200 Nicotine dependence, unspecified, uncomplicated
CPT/HCPCS: 36415; 80048; 80307; 80320; 82150; 83690; 85025; 85610; 93005; 94640; 97802; 99406; G0480